=== PATIENT | female | born 1975 | race Caucasian/White ===

== ENCOUNTER 2016-10-06 11:11 | Emergency (ER) | payer OTHER ==
[2016-10-06 11:45] VITALS: BP 151/82; PULSE 81; RESP 16; TEMP 98.4; O2SAT 96
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
== END 2016-10-06 14:45 | disposition home or self-care (01) ==
DX: S09.90XA Unspecified injury of head, initial encounter (principal); F07.81 Postconcussional syndrome; W18.09XA Striking against other object with subsequent fall, initial encounter

== ENCOUNTER → 2018-08-24 | Outpatient (CLI) | payer OTHER | LOC: FIMAGING 15:31 ==